=== PATIENT | male | born 1970 | race Hispanic/Latino ===

== ENCOUNTER 2018-01-05 03:10 | Emergency (ER) | payer OTHER ==
[~2018-01-05] VITALS: Ht 188 cm; Wt 124.3 kg
[2018-01-05] MEDS ORDERED: SODIUM CHLORIDE 0.9% 1000ML 1,000 ML IV SCH (04:45)
== END 2018-01-05 08:09 | disposition home or self-care (01) ==
LOC: FSED 03:10
DX: R10.11 Right upper quadrant pain (principal); R11.0 Nausea; K80.20 Calculus of gallbladder without cholecystitis without obstruction
CPT/HCPCS: 96360; 99284

== ENCOUNTER → 2018-03-21 | Day surgery (SDC) | payer OTHER ==
[2018-03-20 15:53] LABS: BASOPHILS % 0.5 % (0.0-1.0); EOSINOPHILS # (AUTO) 0.2 (0.0-0.4); HEMOGLOBIN 16.6 g/dL (14.0-18.0); LYMPHOCYTES # (AUTO) 2.5 (1.0-3.2); LYMPHOCYTES % 31.7 % (18.0-39.1); MEAN CORPUSCULAR HEMOGLOBIN 30.4 pg (28-32); MEAN CORPUSCULAR HGB CONC 34.6 g/dL (31-35); MEAN CORPUSCULAR VOLUME 87.9 fL (81-99); MONOCYTES # (AUTO) 0.5 (0.2-0.8); MONOCYTES % 6.3 % (4.4-11.3); NEUTROPHILS # (AUTO) 4.7 (2.1-6.9); PLATELET COUNT 235 x10e3/uL (140-360); RED BLOOD COUNT 5.46 x10e6/uL (4.3-5.7)
[2018-03-20 15:55] LABS: CLARITY,URINE SL CLOUDY (CLEAR); COLOR,URINE YELLOW (YELLOW); KETONES,URINE NEGATIVE (NEGATIVE); LEUKOCYTE ESTERASE ,URINE NEGATIVE (NEGATIVE); NITRITE,URINE NEGATIVE (NEGATIVE); PROTEIN,URINE DIPSTICK 2+ (NEGATIVE); URINE UROBILINOGEN 0.2 mg/dL (0.2 - 1)
[2018-03-20 15:56] LABS: BILIRUBIN,URINE NEGATIVE (NEGATIVE)
[2018-03-20 16:12] LABS: ALANINE AMINOTRANSFERASE 40 IU/L (0-55); ALBUMIN 3.9 g/dL (3.5-5.0); ALBUMIN/GLOBULIN RATIO 1.1 (0.8-2.0); ALKALINE PHOSPHATASE 69 IU/L (40-150); ANION GAP 15.7 mmol/L (8-16); BLOOD UREA NITROGEN 15 mg/dL (7-26); BUN/CREATININE RATIO 15 (6-25); CALCIUM 9.5 mg/dL (8.4-10.2); CARBON DIOXIDE 25 mmol/L (22-29); CHLORIDE 106 mmol/L (98-107); CREATININE, SERUM 1.01 mg/dL (0.72-1.25); EST GLOMERULAR FILTRATION RATE > 60 ML/MIN (60-); GLUCOSE 117 mg/dL (74-118); POTASSIUM 3.7 mmol/L (3.5-5.1); SODIUM 143 mmol/L (136-145)
[~2018-03-21] MED LIST: BUPIVACAINE 0.25%/EPI 30ML SDV INJ ONE; DEXAMETHASONE SOD PHOS INJ 4 MG/ML VIAL ONE; FENTANYL CITRATE/PF 100MCG/2 ML INJ ONE; KETOROLAC TROMETHAMINE 30 MG/ML VIAL ONE; LIDOCAINE HCL 2% LOCAL INJ 5 ML SDV VIAL INJ ONE; MIDAZOLAM HCL 2 MG/2 ML VIAL ONE; ONDANSETRON HCL INJ 2 MG/ML VIAL ONE; PROPOFOL IV EMULSION 10 MG/ML 20 ML VIAL ONE; ROCURONIUM BROMIDE 10 MG/ML 5ML VIAL ONE; SEVOFLURANE INHAL SOLN 250 ML PEN BTL ONE
--- NOTE | 2018-03-21 16:27 | Operative Report ---
DATE OF PROCEDURE: March 21, 2018 PREOPERATIVE DIAGNOSIS: Cholecystitis and cholelithiasis. POSTOPERATIVE DIAGNOSIS: Cholecystitis and cholelithiasis. OPERATION PERFORMED: Laparoscopic cholecystectomy. [employer]LE[employer] SUPPLY SPECIALIST: Dr. Bakari Grubbs. ANESTHESIA: General endotracheal. COMPLICATIONS: None. ESTIMATED BLOOD LOSS: Minimal. DESCRIPTION OF PROCEDURE: With the patient lying in bed in the supine position under good general endotracheal anesthesia, the abdomen was prepped with Betadine solution and draped in the usual manner. A Veress needle was introduced into the umbilicus, and pneumoperitoneum was established without any difficulty. An 11 mm trocar was placed into the umbilicus, and a 10 mm video laparoscope was placed into the intraabdominal cavity. Under direct vision, three 5 mm trocars were placed in the right subcostal region. Video laparoscopy at this point revealed a gallbladder to be totally covered up with dense adhesions as well as the right lobe of the liver. All of these adhesions were then slowly and carefully taken down using the cautery scissors, and perfect hemostasis was ascertained. At this point, we were able to grasp the gallbladder, which was rather thick-walled and contained at least 1 large stone impacted at the neck of the gallbladder. The peritoneum overlying the neck of the gallbladder was then opened, and the cystic duct was identified. The cystic duct was followed to its junction with the common duct. The cystic duct was then circumferentially dissected away from the common duct, doubly clipped and divided. The cystic artery was similarly doubly clipped and divided. The gallbladder was then slowly and carefully taken off of the liver bed using the cautery scissors, and perfect hemostasis was ascertained. The gallbladder was then grasped through the umbilical port and removed without any difficulty after crushing the large stone that was within the gallbladder. Video laparoscopy was then again carried out. The liver bed was found to be perfectly dry. And of all the excess fluid was aspirated. The pneumoperitoneum was evacuated, and all the trocars were removed under direct vision. The midline fascia at the umbilicus was then closed with a [id number] of 0 Vicryl. All layers were infiltrated on the way out with solution of 1/4 percent Marcaine. Subcutaneous tissue was approximated with 3-0 Vicryl, and the skin was closed with subcuticular 5-0 Vicryl. Benzoin, Steri-Strips and Band-Aids were applied. The sponge, lap and needle count was correct. The patient tolerated the procedure well and returned to the recovery room in stable condition. Job#: [id number]
== END | disposition home or self-care (01) ==
LOC: OR 10:18
PROVIDERS: ATTEND Surgery
DX: K80.10 Calculus of gallbladder with chronic cholecystitis without obstruction (principal); K82.8 Other specified diseases of gallbladder; F17.210 Nicotine dependence, cigarettes, uncomplicated; Z01.810 Encounter for preprocedural cardiovascular examination; Z01.812 Encounter for preprocedural laboratory examination
CPT/HCPCS: 36415; 47562; 80053; 81003; 85025; 88304; 93005; C1766; J1100; J1885; J2001; J2250; J2405

== ENCOUNTER 2021-12-21 17:09 | Emergency (ER) | payer OTHER ==
[~2021-12-21] VITALS: Ht 177.8 cm; Wt 81.6 kg
[2021-12-21] MEDS ORDERED: IBUPROFEN 600 MG TAB PO STA (17:27)
== END 2021-12-21 18:52 | disposition home or self-care (01) ==
LOC: ER 17:42
DX: S80.02XA Contusion of left knee, initial encounter (principal); S93.492A Sprain of other ligament of left ankle, initial encounter; W01.0XXA Fall on same level from slipping, tripping and stumbling without subsequent striking against object, initial encounter; Y93.01 Activity, walking, marching and hiking; Y99.0 Civilian activity done for income or pay; I10 Essential (primary) hypertension; E11.9 Type 2 diabetes mellitus without complications
CPT/HCPCS: 99283